=== PATIENT | female | born 1955 | race Caucasian/White ===

== ENCOUNTER → 2023-12-05 | Outpatient (CLI) | payer MEDICARE, OTHER ==
--- NOTE | 2023-12-05 12:44 | CT ---
EXAMINATION TYPE: CT chest wo con DATE OF EXAM: 12/05/2023 COMPARISON: None HISTORY: Chronic eosinophilic pneumonia, hx COPD, post Covid conditions. CT DLP: 494 mGycm. Automated Exposure Control for Dose Reduction was Utilized. TECHNIQUE: CT scan of the thorax is performed without IV contrast. FINDINGS: There are marked emphysematous changes. There are no suspicious lung masses or nodules. There is no airspace consolidation, groundglass opacity or abnormal interstitial density. There is no bronchiectasis. There is no pleural effusion or pneumothorax. The great vessels chest are normal and there is no mediastinal, hilar or axillary adenopathy. Patent Limited scanning through the upper abdomen reveals no gross abnormality. No focal osseous lesions are seen. IMPRESSION: 1. Marked emphysematous changes. 2. No acute cardiopulmonary disease. 3. No lung masses, nodules or groundglass opacities or consolidative opacities. 4. No mediastinal, hilar or axillary adenopathy.
== END | disposition home or self-care (01) ==
LOC: RADCTMAIN 11:10
PROVIDERS: ATTEND Internal Medicine Pulmonary Disease
DX: J82.81 Chronic eosinophilic pneumonia
CPT/HCPCS: 71250

== ENCOUNTER 2024-06-25 11:28 | Outpatient (CLI) | payer MEDICARE, OTHER ==
[2024-06-25 11:49] VITALS: BP 136/87; PULSE 72; RESP 16; TEMP 97.6
[2024-06-25] MEDS: DENOSUMAB 60 MG/ML 1 ML SYRINGE SQ NR (11:50)
== END 2024-06-25 14:17 | disposition home or self-care (01) ==
LOC: PROCWHC3 11:28
PROVIDERS: ATTEND Family Medicine
DX: M81.0 Age-related osteoporosis without current pathological fracture (principal)
CPT/HCPCS: 96372; J0897

== ENCOUNTER → 2024-08-04 | Outpatient (CLI) | payer MEDICARE, OTHER ==
[2024-08-04 15:52] LABS: ALT 36 U/L (8-44); AST 25 U/L (13-35); Albumin 4.4 g/dL (3.8-4.9); Albumin/Globulin Ratio 1.91 Ratio (1.60-3.17); Alkaline Phosphatase 104 U/L (41-126); BUN/Creat Ratio 25.62 Ratio (12.00-20.00); Blood Urea Nitrogen 20.5 mg/dL (9.0-27.0); Calcium 9.3 mg/dL (8.7-10.3); Carbon Dioxide 21.9 mmol/L (21.6-31.8); Chloride 98 mmol/L (96-109); Chol/HDL Ratio 1.91 Ratio; Globulin 2.3 g/dL (1.6-3.3); Glucose 100 mg/dL (70-110); LDL Cholesterol,Calculated 52.1 mg/dL (0.0-131.0); Potassium 4.5 mmol/L (3.5-5.5); Sodium 133 mmol/L (135-145); Total Bilirubin 0.6 mg/dL (0.3-1.2); Total Protein 6.7 g/dL (6.2-8.2); VLDL Calculation 16.16 mg/dL (5.00-40.00)
[2024-08-04 18:17] LABS: Microalbumin Creatinine Ratio <10 mg/g Cr (0-30)
== END | disposition home or self-care (01) ==
LOC: LABWHC1 12:32
PROVIDERS: ATTEND Neurological Surgery
DX: I10 Essential (primary) hypertension (principal); I25.10 Atherosclerotic heart disease of native coronary artery without angina pectoris; E11.9 Type 2 diabetes mellitus without complications
CPT/HCPCS: 36415; 80053; 80061; 82043; 82570; 83036